=== PATIENT | male | born 1940 | race Caucasian/White ===

== ENCOUNTER 2018-10-19 04:04 | Emergency (ER) | payer MEDICARE ==
[~2018-10-19] VITALS: Ht 170.2 cm; Wt 93.6 kg
[2018-10-19] MEDS ORDERED: TOUJEO SOL300 UNIT/M SC (04:24)
[2018-10-19] MEDS ORDERED: PROTONIX40 M2 PO (04:24)
[2018-10-19] MEDS ORDERED: FINASTERIDE5 MG PO (04:24)
[2018-10-19] MEDS ORDERED: MAXZIDE-2537.5 MG/TA PO (04:25)
[2018-10-19] MEDS ORDERED: CLONIDINE0.1 MG PO (04:25)
[2018-10-19] MEDS ORDERED: CREON24000 UNT PO (04:25)
[2018-10-19] MEDS ORDERED: ATORVASTATIN CA20 MG PO (04:26)
[2018-10-19] MEDS ORDERED: TOPROL XL PO (04:26)
[2018-10-19 04:41] LABS: HEMATOCRIT 44.9 % (39.0-50.0); HEMOGLOBIN 15.1 g/dl (14.0-18.0); IMMATURE GRANULOCYTES 0.4 % (0.0-5.0); MEAN CELL VOLUME 88.9 fL CALC (80.0-100.0); MEAN CORPUSCULAR HGB 29.9 pG CALC (26.0-32.0); MEAN CORPUSCULAR HGB CONC 33.6 g/L CALC (32.0-36.0); NEUT# 6.23 thou/uL (1.82-7.42); RED BLOOD COUNT 5.05 mill/uL (4.70-6.10); RED CELL DISTRI WIDTH 13.8 % (11.5-15.5)
[2018-10-19 04:54] LABS: ALBUMIN 4.1 g/dL (3.2-5.0); ALKALINE PHOSPHATASE 47 u/l (38-126); AMYLASE 64 u/l (30-110); ANION GAP 12 (6-22 (CALC)); BILIRUBIN, TOTAL 0.9 mg/dL (0.0-1.4); BUN 14 mg/dL (8-23); BUN/CREATININE RATIO 13 (12-20 (CALC)); CARBON DIOXIDE 25 mmol/l (22-30); CHLORIDE 108 mmol/l (95-108); GFR > 60 ML/MIN (>=60 (CALC)); GFR FOR AFR.AMER. > 60 ML/MIN (>=60 (CALC)); LIPASE 146 u/l (23-300); POTASSIUM 3.5 mmol/l (3.5-5.1); SGOT/AST 26 u/l (19-48); SODIUM 142 mmol/l (137-146); TOTAL PROTEIN 7.1 g/dL (6.3-8.2)
[2018-10-19 07:36] LABS: URINE BILIRUBIN - DIPSTICK NEGATIVE (NEGATIVE); URINE BLOOD DIPSTICK MODERATE (NEGATIVE); URINE COLOR YELLOW; URINE GLUCOSE - DIPSTICK 250 mg/dL (NEGATIVE); URINE KETONE NEGATIVE (NEGATIVE); URINE PROTEIN - DIPSTICK 30 mg/dL (NEG-TRACE); URINE SPECIFIC GRAVITY 1.025; URINE UROBILINOGEN - DIPSTICK 0.2 E.U./dL (0.2)
[2018-10-19 07:37] LABS: URINE LEUK ESTERASE MODERATE (NEGATIVE); URINE NITRITE - DIPSTICK POSITIVE (Negative)
[2018-10-19 07:38] LABS: URINE BACTERIA MANY hpf; URINE RBC 0-2 RBC/hpf (0-5); URINE WBC >100 WBC/hpf (0-5)
[2018-10-19] MEDS ORDERED: CIPROFLOXACN500 MG PO (08:51)
[2018-10-19 08:55] VITALS: BP 139/63
== END 2018-10-19 09:09 | disposition home or self-care (01) ==
LOC: ED 04:04
PROVIDERS: Family Medicine
DX: N39.0 Urinary tract infection, site not specified (principal); K86.2 Cyst of pancreas; R10.31 Right lower quadrant pain; R10.32 Left lower quadrant pain; R10.33 Periumbilical pain; E11.9 Type 2 diabetes mellitus without complications; I10 Essential (primary) hypertension; B96.5 Pseudomonas (aeruginosa) (mallei) (pseudomallei) as the cause of diseases classified elsewhere